=== PATIENT | male | born 1970 | race Caucasian/White ===

== ENCOUNTER 2016-04-28 17:11 | Emergency (ER) | payer OTHER ==
[2016-04-28] MEDS ORDERED: DEXAMETHASONE 10 MG/ML VIAL PO STA (18:25)
[2016-04-28] MEDS ORDERED: oxyCOD/ACETAMIN 5 MG/325 MG TABLET PO STA (18:25)
[2016-04-28] MEDS ORDERED: LIDOCAINE PATCH 5% TOP STA (18:25)
--- NOTE | 2016-04-28 18:31 | ED Physician Documentation ---
History of Present Illness - Stated complaint Stated Complaint: BACK PX - Chief complaint Chief Complaint: Back Pain - Additonal information Additional information: hx from pt 45 male long standing back problems known herniated disks dx years ago he generally does well and occasionally has a flare of pain stood up from his desk and had pain to low back with pain radiating down back RLE to the heel, no numbness weakness, saddle anesthesia urinary incont Review of Systems Constitutional: denies: Fever GI: denies: Abdominal Pain : reports: Incontinent Musculoskeletal: reports: Back pain Neurologic: denies: Focal weakness, Numbness Endocrine: denies: Easy bruising / bleeding Immunocompromised: denies: Immunocompromised PD PAST MEDICAL HISTORY - Past Medical History Cardiovascular: Hypertension GI: GERD - Past Surgical History Past Surgical History: Yes - Present Medications Home Medications: Ambulatory Orders Medication Instructions Recorded Confirmed Esomeprazole Magnesium [Nexium 40 mg PO DAILY 03/12/15 04/28/16 24Hr] Lisinopril [Prinivil] 20 mg PO DAILY 03/12/15 04/28/16 Carisoprodol [Soma] 350 mg PO Q8H PRN #15 tablet 04/28/16 Lidocaine Patch 5% [Lidoderm Patch] 1 each TOP DAILY PRN #10 patch 04/28/16 Loratadine [Claritin] 10 mg PO DAILY 04/28/16 04/28/16 predniSONE [Deltasone] 20 mg PO [id number] #21 tab 04/28/16 - Allergies Allergies/Adverse Reactions: Allergies Allergy/AdvReac Type Severity Reaction Status Date / Time cyclobenzaprine HCl * Allergy Intermediate Unknown Verified 03/12/15 15:29 [From [facility] [place]] - Social History Does the pt smoke?: No Smoking Status: Never smoker Does the pt drink ETOH?: No Does the pt have substance abuse?: No - Immunizations Immunizations are current?: Yes PD ED PE NORMAL - Vitals Vital signs reviewed: Yes - General General: Alert and oriented X 3 - Cardiac Cardiac: RRR - Respiratory Respiratory: No respiratory distress - Abdomen Abdomen: Soft, Non tender, Other (no pulsatile mass) - Back Back: No spinal TTP, Other (diffuse low lumbar TTP and limited ROM, no focal redness swelling TTP) - Derm Derm: Normal color - Neuro Neuro: No motor deficit, No sensory deficit, Other (+ R SLE, patellar DTR 2/4, no clonus, nl sensm great toe ext foot dorsi pantar flex kne ext hip flex all 5/ 5, denies saddle anesthesia) Results - Vitals Vitals: Vital Signs - 24 hr 04/28/16 17:19 Temperature 36.7 C Heart Rate 77 Respiratory 18 Rate Blood Pressure 156/104 H O2 Saturation 98 Oxygen O2 Source Room air PD MEDICAL DECISION MAKING - ED course ED course: recurrent LBP with sciatica no red flags Departure - Departure Disposition: Home, Self Care Clinical Impression: Back pain Qualifiers: Back pain location: low back pain Chronicity: acute Back pain laterality: bilateral Sciatica presence: with sciatica Sciatica laterality: sciatica of right side Qualified Code(s): M54.41 - Lumbago with sciatica, right side Sciatica Qualifiers: Laterality: right Qualified Code(s): M54.31 - Sciatica, right side Condition: Good Instructions: ED Sciatica, ED Low Back Pain General Follow-Up: Mago Brooke MD [Primary Care Provider] - Prescriptions: predniSONE [Deltasone] 20 mg PO [id number] #21 tab Lidocaine Patch 5% [Lidoderm Patch] 1 each TOP DAILY PRN #10 patch PRN Reason: Pain Carisoprodol [Soma] 350 mg PO Q8H PRN #15 tablet PRN Reason: muscle spasm Comments: Please follow up with your PMD at [facility] for a recheck. And please get your blood pressure rechecked when you are not in so much pain - it was elevated today Forms: Activity restrictions
[2016-04-28] MEDS ORDERED: CHERRY SYRUP 10 ML UDC PO ONE (18:38)
[2016-04-28] MEDS ORDERED: DEXAMETHASONE 10 MG/ML VIAL ONE (18:38)
[2016-04-28] MEDS ORDERED: oxyCOD/ACETAMIN 5 MG/325 MG TABLET PO ONE (18:38)
[2016-04-28] MEDS ORDERED: LIDOCAINE PATCH 5% TOP ONE (18:39)
[2016-04-28 18:54] VITALS: BP 149/99
== END 2016-04-28 18:54 | disposition home or self-care (01) ==
LOC: ED 17:11
DX: M54.41 Lumbago with sciatica, right side (principal); I10 Essential (primary) hypertension
CPT/HCPCS: 99283; A9270

== ENCOUNTER 2016-09-20 08:41 | Emergency (ER) | payer OTHER ==
[2016-09-20] MEDS ORDERED: SULFAMETH/TRIMETH DS 800/160 MG TABLET PO STA (09:26)
[2016-09-20] MEDS ORDERED: SULFAMETH/TRIMETH DS 800/160 MG TABLET PO ONE (09:28)
== END 2016-09-20 09:35 | disposition home or self-care (01) ==
DX: L02.612 Cutaneous abscess of left foot (principal); I10 Essential (primary) hypertension
CPT/HCPCS: 87070; 87077; 87181; 87205; 99283; A9270

== ENCOUNTER 2018-12-24 15:06 | Outpatient (CLI) | payer OTHER ==
[2018-12-24 16:31] VITALS: BP 150/96
--- NOTE | 2018-12-24 16:31 | SLEEP CARE CONSULTATION ---
Information from patient questionnaire entered by Lexus Hill. I have reviewed and concur with the information entered by Lexus Hill. This document represents the service I personally performed and the decisions made by me, Lissette Marni, RN, MSN, DIRECTOR OF DIETARY. History of Present Illness Reason for Visit: Previously diagnosed sleep apnea (2007 at 235 pounds and AHI of 9.24 ), sleep apnea on CPAP therapy, Re-establish care Chief Complaint: reports: Unrefreshed sleep, Snoring, Observed pauses in breathing, Fatigue, Frequent awakenings at night Duration of Symptoms: 29 Usual bedtime: 2100 Time it takes to fall asleep: 15-20 Snores at night: Yes (ON BACK WITH CURRENT PRESSURE) Observed to quit breathing while asleep: Yes Sleeps alone due to snoring: No Number of times waking at night: 4-6 Reasons for waking at night: reports: Snoring (with CPAP for past 2 months ) Toss, Turn, or Twitch while sleeping: Yes Recalls having dreams: Yes Usually gets out of bed at: 0515 Feels refreshed in the morning: No Morning headache: Yes (intermittently past 2 months) Sleepy or fatigued during the day: Yes Ever fallen asleep while driving: No Takes day naps: No Dreams during day naps: No Prior sleep studies: Yes Year and Where: 2007 [facility], 2014 [facility] Additional HPI information: Patient was here last July 2014. He had a manual titration study and his CPAP was to update his CPAP and follow up. Patient updated his CPAP and has been using nightly since. He finds it impossible to sleep without CPAP. He is here today to establish care and update his CPAP device as it has started to make a wheezing noise for about 2 months. He has also noted waking to gasping when he is supine the last couple months. No increase of weight during that time. He is also waking more often up to to 4-6 times a night and is more tired during the day. He has also been waking up to intermittently to frontal headache that resolves in 60-90 minutes. - Parasomnia Symptoms Ever been unable to move upon waking from sleep: No (not as an adult ) Walks in sleep: No Talks in sleep: Yes Ever acted out dreams in sleep: No Ever felt weak in the knees when startled or emotional: No Bothered by creepy, crawly, restless sensations in legs: Yes (2-3 times a week was better in past with new CPAP) Problems with memory or concentration: Yes CPAP Compliance Data - Data Reviewed with Patient Average duration of nightly device use: 8h 5m Compliance rate %: 100 (180 days) Current pressure setting (cmH2O): 8-15 Humidity settin Average residual AHI: 1.6 Subjective Patient concerns: reports: mask discomfort (yes from tightening mask due to mask leaks and worn headgear ), air blowing in eyes, other (headache, not getting restful sleep, tossing/turning,waking self by snoring with mask). denies: aerophagia, mask leak noise, condensation in mask/hose, nasal congestion, dry mouth, nose, throat, epistaxis Observed to snore while using device: Yes Current pressure setting perceived as: too low (supine) On therapy, patient: reports: sleeping better (more fragmented the past few months ), awakening more refreshed ( but not as refreshed as before), more rested overall (but increased fatigue since device started making noise. ). denies: drowsiness while driving Initial [place] Sleepiness Scale score: 12 Current [place] Sleepiness Scale score: 12 Past Medical History Past Medical History: reports: Hypertension, Arthritis, GERD Social History The patient's occupation is a RE. Patient is and lives in [place]. Have you smoked in the past 12 months: No Alcohol use: No Caffeine use: Yes Caffeine amount and frequency: 3-4 sodas/day Family History Family history of sleep disordered breathing: Yes Family Hx Sleep Apnea: Mother: Snoring, Father: Sleep apnea - Treated Allergies and Home Medications Known drug allergies: Yes (Flexeril, anthrax vaccine) Home medication list reviewed: Yes Allergy and home medication list: lisinopril 20mg daily Claritin 10 mg daily Neximum 40 mg daily Review of Systems Weight gain over past 5 years: 30 Cardiovascular: reports: high blood pressure Gastrointestinal: reports: heartburn (controlled with medication) Musculoskeletal: reports: joint pain, back pain Immunologic: reports: sneezing Physical Exam Blood Pressure: 150/96 ( 130/90 30 minutes later, usual home B/P 130-135/8) Heart Rate: 72 O2 Saturation: 97 Height: 5 ft 11 in Weight: 313 lb 6.4 oz Body Mass Index: 43.7 BMI Classification: Obesity Class 3 Mouth and throat: narrow oropharynx Soft palate: long Hard palate: normal Uvula visualization: 25% Mallampati Class III Heart: regular rate and rhythm Lungs: clear bilaterally Impression and Plan 1. Obstructive Sleep Apnea-Hypopnea Syndrome, mild , with good treatment compliance and good apnea control. However, his symptoms have increased since his current CPAP started making noise with waking to gasping when supine, unrefreshed sleep, morning headaches, reduced concentration and increased fatigue and chance of dozing mid afternoon. It seems apparent his symptoms increased with machine dysfunction so I will update device. If symptoms continue, I will order a manual titration study. Before machine malfunction he had better sleep quality and was more rested overall. I will also change his autoCPAP pressure to start higher pressure to accomodate for supine sleep apnea needs. His 90% pressure is 10.7cmH20 so I will change his autoCPAP pressure on new CPAP to [id number]. Patient's apnea severity and rationale for treatment to reduce apnea, improve sleep quality and reduce cardiovascular and cerebrovascular events was reviewed. I also reviewed the benefit of consistent device use of CPAP for hypertension, gastric reflux. Since his weight is about 90 pounds greater than diagnosed, his apnea severity is probable more severe. It is hoped the new device will reduce above symptoms. To reduce apnea risk, he is advised to lose weight as well as to reduce overall health risks. As he loses weight, the CPAP requirements will reduce. Symptoms to report discussed. * Update CPAP * Change CPAP pressure to 10-16 cmH2O * Notify me if snoring with mask or feeling that the pressure is too much or too little * Attempt to lose weight * Return for follow up in 1 month after new CPAP , or sooner if concerns arise I spent 100% of this 40 minute visit face to face with the patient with greater than 50% of this was spent time counseling the patient and coordination of care.
== END 2018-12-24 15:07 | disposition home or self-care (01) ==
LOC: SC 15:06
PROVIDERS: ATTEND Nurse Practitioner Family
DX: G47.33 Obstructive sleep apnea (adult) (pediatric) (principal); E66.9 Obesity, unspecified; Z68.41 Body mass index [BMI] 40.0-44.9, adult
CPT/HCPCS: 99204; 99212

== ENCOUNTER 2019-03-27 14:19 | Outpatient (CLI) | payer OTHER ==
[2019-03-27 15:25] VITALS: BP 144/90
--- NOTE | 2019-03-27 15:25 | SLEEP CARE CONSULTATION ---
Information from patient questionnaire entered by Abimbola Dorman. I have reviewed and concur with the information entered by Abimbola Dorman. This document represents the service I personally performed and the decisions made by me, Lissette Marin, RN, MSN, [employer]. History of Present Illness Previous diagnosis: Mild, Obstructive Sleep Apnea-Hypopnea Syndrome AHI: 9.2 Reason for follow up: first compliance after device update Equipment type: CPAP Equipment obtained from: [employer] Mask style: Full face Mask brand: Resmed Backup mask available: Yes Last cushion change: 3 weeks ag0 HPI additional information: The updated device higher pressure range resolved symptoms of gasping on his b ack. His morning headaches also resolved and he now sleeps better and is more rested overall. He has also been able to increase his sleep length by 2 hours. CPAP Compliance Data - Data Reviewed with Patient Average duration of nightly device use: 8.6 Compliance rate %: 100 Current pressure setting (cmH2O): 10-16 Humidity settin Heated hose settin Average residual AHI: 1.0 Average large leak: 2 sec Subjective Patient concerns: reports: mask leak noise (only when time to change cushion), dry mouth, nose, throat (mild to moderate ). denies: aerophagia, mask discomfort, air blowing in eyes, condensation in mask/hose, nasal congestion, epistaxis Observed to snore while using device: Yes (mild snoring when ill ) Current pressure setting perceived as: comfortable On therapy, patient: reports: sleeping better, awakening more refreshed, being more awake and alert during the day, more rested overall. denies: drowsiness while driving Initial [place] Sleepiness Scale score: 12 Current Campbell Sleepiness Scale score: 3 Allergies and Home Medications Known drug allergies: Yes Drug allergies reviewed: Yes Home medication list reviewed: Yes (no changes since last visit ) Review of Systems Review of systems same as previous: No (had flu over holidays) Physical Exam Blood Pressure: 144/90 Cuff size: long Heart Rate: 67 O2 Saturation: 96 Height: 5 ft 11 in Weight: 311 lb Weight change since last visit: lost 2 pounds Body Mass Index: 43.3 BMI Classification: Obesity Class 3 Impression and Plan 1. Obstructive Sleep Apnea-Hypopnea Syndrome, mild, with good treatment compliance and good apnea control. On CPAP therapy, the patient has better sleep quality and is more rested overall. His Campbell reduced from 12 to 3. For oral dryness, I advised him to increase humidity to comfort. If continued dryness, reduce heated hose. Printed instructions given with rationale written and demonstrated on sample machine. He followed up with PCP re elevated blood pressure and is monitoring at home with follow up planned. I also discussed how weight loss can reduce blood pressure in addition to using his CPAP. Obesity increases the risk of apnea, CPAP pressure requirements and overall health risks especially cardiovascular and diabetes. Thus patient is advised to lose weight. Currently patients BMI is 43.7 obesity class. Weight loss can be done with reducing portion size, refined foods and balancing content with vegetables, fruit and protein. A diet consultation can be helpful in achieving optimal weight loss goals. The BMI chart was reviewed. The patient would like to reduce to 230 pounds bringing their BMI down to 32. Patient encouraged to discuss their weight loss goals with their PCP and consider a referral to a political science research assistant. The goal is to get rid of belly weight as BMI chart is guideline. Symptoms to report for additional pressure adjustment discussed. Patient's apnea severity and rationale for treatment to reduce apnea, improve sleep quality and reduce cardiovascular and cerebrovascular events was reviewed. His sleep study results also reviewed that showed increased apnea in REM sleep but not noted if worse supine. I also reviewed the benefit of consistent device use of CPAP for hypertension. * Continue CPAP pressure at 10-16 cmH2O * Adjust humidity * Notify me if snoring with mask or feeling that the pressure is too much or too little * Attempt to lose weight * Call this office if any problems using CPAP * Return for follow up in 1 year, or sooner if concerns arise . Time Spent with Patient (minutes): 30 I spent 100% of this visit face to face with the patient with greater than 50% of this was spent time counseling the patient and coordination of care.
== END 2019-03-27 14:20 | disposition home or self-care (01) ==
LOC: SC 14:19
PROVIDERS: ATTEND Nurse Practitioner Family
DX: G47.33 Obstructive sleep apnea (adult) (pediatric) (principal); E66.9 Obesity, unspecified; Z68.41 Body mass index [BMI] 40.0-44.9, adult
CPT/HCPCS: 99212; 99214

== ENCOUNTER 2020-05-06 15:13 | Outpatient (CLI) | payer OTHER ==
--- NOTE | 2020-05-06 15:51 | SLEEP CARE CONSULTATION ---
Information from patient questionnaire entered by Deidre Murray. I have reviewed and concur with the information entered by Deidre Murray. This document represents the service I personally performed and the decisions made by me, Radha Teran ARNP. History of Present Illness Service Date and Time: 05/06/2020 1513 Previous diagnosis: Mild, Obstructive Sleep Apnea-Hypopnea Syndrome AHI: 9.2 Reason for follow up: annual (Last seen 04/2019) Equipment type: CPAP Equipment obtained from: [email or web address] (getting supplies as needed) Mask style: Full face Mask brand: [employer] Backup mask available: Yes (old mask) Last cushion change: 1 month ago Prior sleep studies: Yes Year and Where: 2007 [facility], 2014 [facility] additional information: CHRISTINE LAO was diagnosed to have mild, AHI 9.2, obstructive sleep apnea- hypopnea syndrome and returned today for CPAP therapy annual follow-up. CPAP Compliance Data - Data Reviewed with Patient Average duration of nightly device use: 8 h 12 min Compliance rate %: 100 Current pressure setting (cmH2O): 10-16 Humidity settin Heated hose settin Average residual AHI: 1.0 Average large leak: 9 sec Subjective Patient concerns: denies: aerophagia, mask discomfort, air blowing in eyes, mask leak noise, condensation in mask/hose, nasal congestion, dry mouth, nose, throa t, epistaxis, other Observed to snore while using device: No (a little but much better than without it) Current pressure setting perceived as: comfortable On therapy, patient: reports: sleeping better, awakening more refreshed, being more awake and alert during the day, more rested overall. denies: drowsiness while driving Initial [place] Sleepiness Scale score: 12 (in 2015) Current [place] Sleepiness Scale score: 4 Allergies and Home Medications Home medication list reviewed: Yes (no new meds) Review of Systems Review of systems same as previous: No (Right knee arthroscopy 04-11-20) Physical Exam Heart Rate: 73 O2 Saturation: 98 Height: 5 ft 11 in Weight: 335 lb Body Mass Index: 46.7 BMI Classification: Morbidly Obese Impression and Plan 1. Obstructive Sleep Apnea-Hypopnea Syndrome, mild, with excellent treatment compliance and good apnea control. On CPAP therapy, the patient has better sleep quality and is more rested overall. He has no complaints with mask use or CPAP machine. Patient's apnea severity and rationale for treatment to reduce apnea, improve sleep quality and reduce cardiovascular and cerebrovascular events was reviewed. I also reviewed the benefit of consistent device use of CPAP for hypertension. * Continue autoCPAP pressure at 10-16 cmH2O * Notify me if snoring with mask or feeling that the pressure is too much or too little * Attempt to lose weight * Call this office if any problems using CPAP * Return for follow up in 1 year, or sooner if concerns arise Counseling Topics: Spare mask, Weight loss health impact Visit Type: In Office Time Spent with Patient (minutes): 10 Provider Statement: I spent 100% of the Face to Face Visit with the patient with greater than 50% spent counseling the patient and coordination of care.
== END 2020-05-06 15:14 | disposition home or self-care (01) ==
LOC: SC 15:13
PROVIDERS: ATTEND Nurse Practitioner Family
DX: G47.33 Obstructive sleep apnea (adult) (pediatric) (principal); E66.01 Morbid (severe) obesity due to excess calories; Z68.42 Body mass index [BMI] 45.0-49.9, adult
CPT/HCPCS: 99212

== ENCOUNTER 2021-10-15 08:21 | Outpatient (CLI) | payer OTHER ==
[2021-10-15 09:03] VITALS: BP 121/77
--- NOTE | 2021-10-15 09:03 | SLEEP CARE CONSULTATION ---
Information from patient questionnaire entered by Nguyen Jones MA. I have reviewed and concur with the information entered by Nguyen Jones MA. This document represents the service I personally performed and the decisions made by , Radha Teran ARNP. History of Present Illness Service Date and Time: 10/15/2021 0821 Previous diagnosis: Mild, Obstructive Sleep Apnea-Hypopnea Syndrome AHI: 9.2 Reason for follow up: annual (LAST SEEN 04/2020, SEAN, ) Equipment type: CPAP Equipment obtained from: [employer] (getting supplies as needed) Mask style: Full face Mask brand: [employer] Backup mask available: Yes (other mask) Last cushion change: on 09/17/21 Prior sleep studies: Yes Year and Where: 2007 [facility], 2014 [facility] HPI additional information: CHRISTINE LAO was diagnosed to have mild, AHI 9.2, obstructive sleep apnea- hypopnea syndrome and returned today for CPAP therapy annual follow-up. Sleep Study - Results Prior sleep studies: Yes Year and Where: 2007 [facility], 2014 [facility] CPAP Compliance Data - Data Reviewed with Patient Average duration of nightly device use: 8 hours 37 minutes Compliance rate %: 100 (30/30 days) Current pressure setting (cmH2O): 10-16 Average residual AHI: 1.0 Average large leak: 2 secs. Subjective Patient concerns: denies: aerophagia, mask discomfort, air blowing in eyes, mask leak noise, condensation in mask/hose, nasal congestion, dry mouth, nose, throat, epistaxis, other Observed to snore while using device: Yes (if on his back, on exhale) Current pressure setting perceived as: comfortable On therapy, patient: reports: sleeping better, awakening more refreshed, being more awake and alert during the day, more rested overall. denies: drowsiness while driving Initial Lily Sleepiness Scale score: 12 (in 2014) Current Lily Sleepiness Scale score: 7 (10/15/2021) Allergies and Home Medications Home medication list reviewed: Yes (no changes) Allergy and home medication list: Allergies cyclobenzaprine HCl * [From Flexeril] Allergy (Intermediate, Verified 03/12/15 15:29) Unknown cauases muscles to tense anthrax vaccine Allergy (Verified 09/20/16 08:56) Unknown Review of Systems Review of systems same as previous: No (arthroscopic on both knees) Physical Exam Vital signs obtained and entered by: [facility] [place] Blood Pressure: 121/77 (RESP 18, PULSE 77, LEFT) Cuff size: wrist Heart Rate: 78 O2 Saturation: 97 (N95) Height: 5 ft 11 in Weight: 330 lb Weight change since last visit: LOSING: WALKING, PORTION, CONTROL Body Mass Index: 46.0 BMI Classification: Morbidly Obese Impression and Plan 1. Obstructive Sleep Apnea-Hypopnea Syndrome, mild, with excellent treatment compliance and good apnea control. On CPAP therapy, the patient has better sleep quality and is more rested overall. Patient's has told him he is snoring more when using machine, especially when on his back. He has noted more afternoon tiredness with head bobbing. I will adjust his pressure to 12-16 cmH2O to reduce snoring. Christine has a Dreamstation. He contacted [facility] and they said he needed a prescription to replace the recalled device. Patient denies any black particles seen in machine or hoses, any unusual odors coming from device. Patient has not experienced any physical symptoms such as upper airway irritation, headache, skin or eye irritation, asthma, nausea/vomiting, difficulty breathing or chest pain. If patient is not able to sleep due to waking up choking, gasping for air or other respiratory distress that they may decide to continue using it until it is either replaced or repaired. I will write to update device. Patient voiced understanding and agreement with plan. Patient's apnea severity and rationale for treatment to reduce apnea, improve sleep quality and reduce cardiovascular and cerebrovascular events was reviewed. I also reviewed the benefit of consistent device use of CPAP for hypertension. 2. Obesity, unspecified. Currently patients BMI is 46.0. Obesity increases the risk of apnea, CPAP pressure requirements and overall health risks especially cardiovascular and diabetes. Thus patient is advised to lose weight. Weight loss can be done with reducing portion size, reducing refined foods and balancing content with vegetables, fruit and whole grain foods. In addition, patient encouraged to get regular exercise. The patient's CPAP pressure range should accommodate some weight loss. Symptoms to report for additional pressure adjustment discussed. * Update CPAP machine * Update supplies as needed * Change auto CPAP pressure to 12-16 cmH2O * Notify me if snoring with mask or feeling that the pressure is too much or too little * Attempt to lose weight * Call this office if any problems using CPAP * Return for follow up one month after obtaining new device, or sooner if concerns arise Counseling Topics: Spare mask, Weight loss health impact Visit Type: In Office Time Spent with Patient (minutes): 21 Provider Statement: I spent 100% of the Face to Face Visit with the patient with greater than 50% spent counseling the patient and coordination of care.
== END 2021-10-15 08:22 | disposition home or self-care (01) ==
LOC: SC 08:21
PROVIDERS: ATTEND Nurse Practitioner Family
DX: G47.33 Obstructive sleep apnea (adult) (pediatric) (principal); E66.01 Morbid (severe) obesity due to excess calories; Z68.42 Body mass index [BMI] 45.0-49.9, adult
CPT/HCPCS: 99212; 99213